=== PATIENT | female | born 2000 | race Two or more races ===

== ENCOUNTER 2024-07-14 13:03 | Emergency (ER) | payer OTHER ==
[~2024-07-14] VITALS: Ht 170.2 cm; Wt 54.9 kg
[2024-07-14] MEDS ORDERED: KETOROLAC TROMETHAMINE 30 MG VIAL ONE (16:23)
[2024-07-14 16:28] LABS: BASO % 1.1 % (0.1-1.2); EOS # 0.24 (0.04-0.54); EOS % 4.4 % (0.7-7.0); HEMATOCRIT 38.3 % (34.1-44.9); HEMOGLOBIN 12.8 g/dL (11.2-15.7); LYMPH # 1.73 (1.18-3.74); LYMPH % 31.7 % (19.3-53.1); MEAN CORPUSCULAR HEMOGLOBIN 28.1 pg (25.6-32.2); MONO # 0.52 (0.24-0.82); MONO % 9.5 % (4.7-12.5); NEUT # 2.88 (1.56-6.13); NEUT % 52.9 % (34.0-71.1); PLATELET COUNT 250 K/uL (163-369); RED BLOOD COUNT 4.55 M/uL (3.93-5.22); RED CELL DISTRIBUTION WIDTH 12.4 % (11.6-14.4)
[2024-07-14] MEDS ORDERED: KETOROLAC TROMETHAMINE 30 MG VIAL IV ONE (16:30)
[2024-07-14 16:52] LABS: ALBUMIN 4.2 gm/dL (3.4-5.0); BILIRUBIN TOTAL 0.61 mg/dL (0.3-1.2); CALCIUM 8.8 mg/dL (8.5-10.1); CREATININE SERUM 0.59 mg/dL (0.55-1.02); GFR 127.46; GLOBULINA 3.4 G/DL (2.4-3.5); POTASSIUM 3.44 mEq/L (3.5-5.1); TOTAL PROTEIN 7.6 gm/dL (6.4-8.2)
== END 2024-07-14 19:00 | disposition home or self-care (01) ==
LOC: ER 13:03
PROVIDERS: General Practice
DX: O26.899 Other specified pregnancy related conditions, unspecified trimester (principal); R10.2 Pelvic and perineal pain; Z3A.00 Weeks of gestation of pregnancy not specified

== ENCOUNTER 2024-07-15 14:23 | Inpatient (IN) | payer OTHER ==
[~2024-07-15] VITALS: Ht 170.2 cm; Wt 558.4 kg
[2024-07-15] MEDS ORDERED: ACETAMINOPHEN 325 MG TABLET PO ONE (16:45)
[2024-07-15] MEDS ORDERED: ACETAMINOPHEN 500 MG GEL..CAP PO ONE (16:53)
[2024-07-15] MEDS ORDERED: ONDANSETRON HCL 2 MG/ML VIAL ONE (16:53)
[2024-07-15] MEDS ORDERED: FAMOTIDINE/PF 20 MG/2 ML VIAL ONE (16:53)
[2024-07-15] MEDS ORDERED: 0.9 % SODIUM CHLORIDE 1,000 ML IV ONE ×2 (17:00→19:15)
[2024-07-15] MEDS ORDERED: FAMOtidine 10 MG/ML (4ML VIAL) IV ONE (17:00)
[2024-07-15] MEDS ORDERED: MORPHINE SULFATE 2 MG/ML CARTRIDGE IV ONE (17:00)
[2024-07-15] MEDS ORDERED: ONDANSETRON HCL 2 MG/ML VIAL IV ONE (17:00)
[2024-07-15 18:10] LABS: BASO % 0.4 % (0.1-1.2); EOS # 0.05 (0.04-0.54); EOS % 0.3 % (0.7-7.0); HEMATOCRIT 30.9 % (34.1-44.9); HEMOGLOBIN 10.5 g/dL (11.2-15.7); LYMPH # 1.19 (1.18-3.74); LYMPH % 7.4 % (19.3-53.1); MEAN CORPUSCULAR HEMOGLOBIN 29.4 pg (25.6-32.2); MONO # 0.56 (0.24-0.82); MONO % 3.5 % (4.7-12.5); NEUT # 14.14 (1.56-6.13); NEUT % 87.8 % (34.0-71.1); PLATELET COUNT 300 K/uL (163-369); RED BLOOD COUNT 3.57 M/uL (3.93-5.22); RED CELL DISTRIBUTION WIDTH 12.5 % (11.6-14.4)
[2024-07-15 18:18] LABS: INR 1.14; PARTIAL THROMBOPLASTIN TIME 22.4 SECONDS (22.0-34.0); PROTHROMBIN TIME 12.3 SECONDS (9.0-11.5)
[2024-07-15 18:38] LABS: ALBUMIN 3.8 gm/dL (3.4-5.0); BILIRUBIN TOTAL 0.49 mg/dL (0.3-1.2); CALCIUM 8.5 mg/dL (8.5-10.1); CREATININE SERUM 0.59 mg/dL (0.55-1.02); GFR 127.46; GLOBULINA 2.7 G/DL (2.4-3.5); POTASSIUM 3.58 mEq/L (3.5-5.1); TOTAL PROTEIN 6.5 gm/dL (6.4-8.2)
[2024-07-15] MEDS ORDERED: CEFAZOLIN SODIUM 1,000 MG VIAL ONE (19:08)
[2024-07-15] MEDS ORDERED: BARIUM SULFATE 450 ML ORAL.SUSP PO ONE (19:08)
[2024-07-15] MEDS ORDERED: CEFAZOLIN SODIUM 1,000 MG VIAL IV ONE (19:15)
[2024-07-15] MEDS ORDERED: METRONIDAZOLE/SODIUM CHLORIDE 500 MG/100 ML PIGGYBACK IV ONE ×2 (19:15→19:51)
[2024-07-15 20:28] LABS: BASO % 0.3 % (0.1-1.2); EOS # 0.02 (0.04-0.54); EOS % 0.1 % (0.7-7.0); LYMPH % 6.4 % (19.3-53.1); MEAN CORPUSCULAR HEMOGLOBIN 29.3 pg (25.6-32.2); MONO % 3.2 % (4.7-12.5); NEUT # 14.05 (1.56-6.13); NEUT % 89.6 % (34.0-71.1); PLATELET COUNT 322 K/uL (163-369); RED BLOOD COUNT 3.04 M/uL (3.93-5.22); RED CELL DISTRIBUTION WIDTH 12.6 % (11.6-14.4)
[2024-07-15 20:43] LABS: HEMATOCRIT 26.8 % (34.1-44.9)
[2024-07-15 21:22] LABS: HEMOGLOBIN 8.9 g/dL (11.2-15.7)
[2024-07-15] MEDS ORDERED: POVIDONE-IODINE 118 ML BOTT TOP ONE (21:41)
[2024-07-15] MEDS ORDERED: METOCLOPRAMIDE HCL 10 MG in 0.9 % SODIUM CHLORIDE 50 ML IV ONE (23:30)
[2024-07-15] MEDS ORDERED: MORPHINE SULFATE 4 MG/ML CARTRIDGE IV PRN (23:30)
[2024-07-15] MEDS ORDERED: MORPHINE SULFATE 4 MG/ML VIAL IV ONE (23:50)
[2024-07-16] MEDS ORDERED: KETOROLAC TROMETHAMINE 60 MG VIAL IM SCH
[2024-07-16] MEDS ORDERED: MORPHINE SULFATE 4 MG/ML VIAL IV ONE ×2 (00:20→08:00)
[2024-07-16 07:05] LABS: PH,URINE 5.5 (5.0-8.0); URINE APPEARANCE Clear; URINE BACTERIA 26.9 uL (0.0-1933); URINE BILIRRUBIN Negative (NEGATIVE); URINE BLOOD Large; URINE COLOR Yellow; URINE EPITHELIAL CELLS 3.7 uL (0.0-38.8); URINE GLUCOSE Negative (NEGATIVE); URINE KETONE Trace (NEGATIVE); URINE LEUKOCYTE Small; URINE NITRATE Negative; URINE PROTEIN 30 (NEGATIVE); URINE RBC 915.3 uL (0.0-20.8); URINE UROBILINOGEN 0.2 E.U./dl; URINE WBC 73.4 uL (0.0-23.2)
[2024-07-16 07:11] LABS: URINE CAST 0.44 uL (0.0-1.40)
[2024-07-16] MEDS ORDERED: 0.9 % SODIUM CHLORIDE 1,000 ML IV SCH (07:45)
[2024-07-16] MEDS ORDERED: FAMOTIDINE/PF 20 MG/2 ML VIAL ONE (08:40)
[2024-07-16] MEDS ORDERED: FUROsemide 20 MG/2 ML VIAL ONE (08:40)
[2024-07-16] MEDS ORDERED: FAMOTIDINE/PF 20 MG in 0.9 % SODIUM CHLORIDE 8 ML IV PUSH SCH (09:00)
[2024-07-16] MEDS ORDERED: FUROsemide 20 MG/2 ML VIAL IV ONE (10:00)
[2024-07-16 10:06] VITALS: BP 118/80
[2024-07-16] MEDS ORDERED: 0.9 % SODIUM CHLORIDE 10 ML VIAL IJ ONE (10:10)
[2024-07-16 11:51] LABS: BASO % 0.5 % (0.1-1.2); EOS # 0.06 (0.04-0.54); EOS % 1.1 % (0.7-7.0); HEMATOCRIT 28.6 % (34.1-44.9); HEMOGLOBIN 9.8 g/dL (11.2-15.7); LYMPH # 1.56 (1.18-3.74); LYMPH % 28.3 % (19.3-53.1); MEAN CORPUSCULAR HEMOGLOBIN 28.7 pg (25.6-32.2); MONO # 0.48 (0.24-0.82); MONO % 8.7 % (4.7-12.5); NEUT # 3.36 (1.56-6.13); PLATELET COUNT 138 K/uL (163-369); RED BLOOD COUNT 3.41 M/uL (3.93-5.22); RED CELL DISTRIBUTION WIDTH 13.8 % (11.6-14.4)
[2024-07-16 11:53] LABS: BASO % 0.5 % (0.1-1.2); EOS # 0.05 (0.04-0.54); EOS % 0.9 % (0.7-7.0); HEMATOCRIT 28.2 % (34.1-44.9); HEMOGLOBIN 9.7 g/dL (11.2-15.7); LYMPH # 1.68 (1.18-3.74); LYMPH % 29.9 % (19.3-53.1); MEAN CORPUSCULAR HEMOGLOBIN 28.4 pg (25.6-32.2); MONO % 8.9 % (4.7-12.5); NEUT # 3.34 (1.56-6.13); NEUT % 59.4 % (34.0-71.1); PLATELET COUNT 148 K/uL (163-369); RED BLOOD COUNT 3.42 M/uL (3.93-5.22); RED CELL DISTRIBUTION WIDTH 13.7 % (11.6-14.4)
[2024-07-16 12:24] LABS: INR 1.2; PARTIAL THROMBOPLASTIN TIME 28.4 SECONDS (22.0-34.0); PROTHROMBIN TIME 12.9 SECONDS (9.0-11.5)
[2024-07-16 12:33] LABS: ALBUMIN 2.9 gm/dL (3.4-5.0); BILIRUBIN TOTAL 2.01 mg/dL (0.3-1.2); CALCIUM 7.6 mg/dL (8.5-10.1); CREATININE SERUM 0.55 mg/dL (0.55-1.02); GFR 138.21; GLOBULINA 2.1 G/DL (2.4-3.5); POTASSIUM 3.41 mEq/L (3.5-5.1)
[2024-07-16 14:59] VITALS: O2SAT 100
[2024-07-16 16:32] VITALS: BP 118/72
[2024-07-16] MEDS ORDERED: SOD FERRIC GLUC COMPLX/SUCROSE 62.5 MG/5 ML AMPUL IV SCH (17:00)
[2024-07-16] MEDS ORDERED: SOD FERRIC GLUC COMPLX/SUCROSE 125 MG in 0.9 % SODIUM CHLORIDE 100 ML IV SCH (17:00)
[2024-07-17] VITALS: BP 100/61
[2024-07-17] MEDS ORDERED: ONDANSETRON HCL 2 MG/ML VIAL IV PRN (03:15)
[2024-07-17 08:06] VITALS: BP 108/68
[2024-07-17] MEDS ORDERED: SODIUM CL 0.9% 100 ML IV.SOLN IV ONE (16:57)
[2024-07-17 17:06] VITALS: BP 113/73
[2024-07-17] MEDS ORDERED: FAMOTIDINE/PF 20 MG/2 ML VIAL ONE (21:28)
[2024-07-18 01:00] VITALS: BP 104/62
[2024-07-18 08:51] VITALS: BP 106/66
== END 2024-07-18 10:01 | disposition home or self-care (01) | DRG 817 ==
LOC: ER 14:47 → OB/GYN 20:04 → O/R 20:04 → OB/GYN 07-16 08:30
PROVIDERS: General Practice; ADMIT Obstetrics & Gynecology; ATTEND Obstetrics & Gynecology
PROC: 0UT60ZZ Resection of Left Fallopian Tube, Open Approach (ICD-10-PCS; 2024-07-15)
PROC: 0WCG0ZZ Extirpation of Matter from Peritoneal Cavity, Open Approach (ICD-10-PCS; 2024-07-15)
PROC: BW40ZZZ Ultrasonography of Abdomen (ICD-10-PCS; 2024-07-15)
PROC: BW25ZZZ Computerized Tomography (CT Scan) of Chest, Abdomen and Pelvis (ICD-10-PCS; 2024-07-15)
PROC: 30233N1 Transfusion of Nonautologous Red Blood Cells into Peripheral Vein, Percutaneous Approach (ICD-10-PCS; 2024-07-15)
PROC: 10D20ZZ Extraction of Products of Conception, Ectopic, Open Approach (ICD-10-PCS; principal; 2024-07-15 22:30)
DX: O00.102 Left tubal pregnancy without intrauterine pregnancy (principal); K66.1 Hemoperitoneum